=== PATIENT | male | born 1965 | race Caucasian/White ===

== ENCOUNTER 2016-08-22 14:13 | Outpatient (CLI) | payer BC | END 2016-08-22 14:14 | disposition home or self-care (01) | DX: L30.9 Dermatitis, unspecified (principal); I10 Essential (primary) hypertension; E66.9 Obesity, unspecified; D35.2 Benign neoplasm of pituitary gland; L98.9 Disorder of the skin and subcutaneous tissue, unspecified; H54.62 Unqualified visual loss, left eye, normal vision right eye ==

== ENCOUNTER 2016-08-23 08:00 | Outpatient (CLI) | payer BC | END 2016-08-23 23:59 | disposition home or self-care (01) | DX: L30.9 Dermatitis, unspecified (principal); D35.2 Benign neoplasm of pituitary gland; I10 Essential (primary) hypertension; E66.9 Obesity, unspecified ==

== ENCOUNTER 2018-05-01 09:19 | Emergency (ER) | payer BC ==
[2018-05-01] MEDS ORDERED: LIDOCAINE-MPF 2% 10 ML in SODIUM CHLORIDE 0.9% 50 ML IV STA (09:51)
[2018-05-01] MEDS ORDERED: SODIUM CHLORIDE 0.9% 1,000 ML IV ONE (09:51)
[2018-05-01] MEDS ORDERED: KETOROLAC 30 MG/ML VIAL IVP STA (09:52)
--- NOTE | 2018-05-01 09:55 | ED Physician Documentation ---
PD HPI BACK PAIN - Stated complaint Stated Complaint: BACK PX - Chief complaint Chief Complaint: Back Pain - History obtained from History obtained from: Patient, Family (spouse) - History of Present Illness Timing - onset: How many days ago (3) Timing - details: Still present Pain level max: 10 Pain level now: 7 Location: Mid, Right Quality: Pain Associated symptoms: No: Fever, Weakness, Numbness, Incontinent of urine Similar symptoms before: Diagnosis (Prior history of kidney stones.) - Treatment prior to arrival Treatment prior to arrival: Ibuprophen and Flexeril. - Additional information Additional information: The patient is a 53-year-old male who presents with right mid back pain that first started about 3 days ago, and became much worse at 3 AM today. He was "writhing" in pain. He took 1 tablet of his 's Flexeril, and has been using ibuprofen, and his pain is currently rated at 7 out of 10 in severity, compared to greater than 10 out of 10 at 3 AM. He denies any traumatic injury. He denies fever, nausea or vomiting, urinary symptoms, numbness or weakness. He has a past history of kidney stones. He also has a past history of lumbar degenerative disease. Review of Systems Constitutional: denies: Fever Nose: denies: Congestion Throat: denies: Sore throat Cardiac: denies: Chest pain / pressure Respiratory: denies: Dyspnea, Cough GI: denies: Abdominal Pain, Nausea, Vomiting : denies: Dysuria, Incontinent Skin: denies: Lesions Musculoskeletal: reports: Back pain. denies: Extremity pain Neurologic: denies: Focal weakness, Numbness, Headache PD PAST MEDICAL HISTORY - Past Medical History Past Medical History: Yes Cardiovascular: Hypertension Endocrine/Autoimmune: Type 2 diabetes : Kidney stones Derm: Psoriasis - Past Surgical History Past Surgical History: Yes - Present Medications Home Medications: Ambulatory Orders Medication Instructions Recorded Confirmed Atorvastatin [Lipitor] 05/01/18 Cyclobenzaprine [Flexeril] 10 mg PO TID PRN #20 tablet 05/01/18 Lisinopril 05/01/18 Metformin HCl 05/01/18 05/01/18 Oxycodone HCl/Acetaminophen 1 - 2 each PO Q6H PRN #14 tablet 05/01/18 [Percocet 5-325 mg Tablet] - Allergies Allergies/Adverse Reactions: Allergies Allergy/AdvReac Type Severity Reaction Status Date / Time acetaminophen [From Vicodin] AdvReac Nausea Verified 05/01/18 09:26 hydrocodone bitartrate * AdvReac Nausea Verified 05/01/18 09:26 [From Vicodin] Penicillins AdvReac Nausea Verified 05/01/18 09:26 - Social History Does the pt smoke?: No Smoking Status: Former smoker Does the pt drink ETOH?: Yes Does the pt have substance abuse?: No - Immunizations Immunizations are current?: Yes - POLST Patient has POLST: No PD ED PE NORMAL - Vitals Vital signs reviewed: Yes (Initially hypertensive.) - General General: Alert and oriented X 3, Other (Grossly overweight.) - HEENT HEENT: Atraumatic, Pharynx benign - Neck Neck: No adenopathy, No JVD - Cardiac Cardiac: RRR - Respiratory Respiratory: No respiratory distress, Clear bilaterally - Abdomen Abdomen: Soft, Non tender - Back Back: No spinal TTP, Other (Right CVA tenderness to percussion.) - Derm Derm: No rash - Extremities Extremities: No edema, No calf tenderness / cord - Neuro Neuro: Alert and oriented X 3, No motor deficit, Normal speech Results - Vitals Vitals: Oxygen O2 Source Room air - Labs Labs: Laboratory Tests 05/01/18 10:10 Urine Color YELLOW Urine Clarity CLEAR Urine pH 5.5 Ur Specific [place] 1.025 Urine Protein NEGATIVE Urine Glucose (UA) NEGATIVE Urine Ketones NEGATIVE Urine Occult Blood NEGATIVE Urine Nitrite NEGATIVE Urine Bilirubin NEGATIVE Urine Urobilinogen 0.2 (NORMAL) Ur Leukocyte Esterase NEGATIVE Ur Microscopic Review NOT INDICATED Urine Culture Comments NOT INDICATED - Rads (name of study) CT abd/pelvis w/o Radiology: Prelim report reviewed, EMP read contemporaneously, See rad report (No urinary tract stones or obstruction. Mild nonspecific fat stranding in the left lower quadrant as well as along the celiac root by the pancreatic body, both of questionable clinical significance.) PD MEDICAL DECISION MAKING - ED course Complexity details: reviewed results, re-evaluated patient, considered differential, d/w patient, d/w family ED course: The patient's presentation is most consistent with musculoskeletal back pain. Renal colic was considered, but CT scan of the abdomen and pelvis reveals no evidence of ureteral stone or hydronephrosis. His urinalysis is negative for hematuria. It is possible that a stone may have passed prior to obtaining the CT scan. His presentation does not suggest pyelonephritis, nor is there evidence to suggest abdominal aortic aneurysm. Treatment in the emergency department included administration of ketorolac 30 mg IV, lidocaine IV as per renal stone protocol, and normal saline 300 mL IV. He is being discharged with prescriptions for Flexeril and for Percocet, 14 tablets. I discussed with him and his the diagnosis, results of his workup, outpatient follow-up, as well as potentially worrisome signs or symptoms that should prompt reevaluation in the emergency department. Departure - Departure Disposition: Home, Self Care Clinical Impression: Back pain Condition: Stable Instructions: ED Neck Back Pain General Follow-Up: Dae Carrasco MD [Provider Admit Priv/Credential] - Prescriptions: Cyclobenzaprine [Flexeril] 10 mg PO TID PRN #20 tablet PRN Reason: Spasms Oxycodone HCl/Acetaminophen [Percocet 5-325 mg Tablet] 1 - 2 each PO Q6H PRN #14 tablet PRN Reason: pain Comments: Apply ice pack to your lower back intermittently for the next 3 or 4 days. Continue to use ibuprofen, up to 800 mg 3 times daily for its anti-inflammatory effect. You can use Flexeril as prescribed if needed for muscle spasms. You can use Percocet as prescribed if needed for pain. Follow-up with your primary physician within 1-2 weeks. Call to schedule appointment. Return to the emergency department if you develop increasing back pain, urinary incontinence, numbness or weakness, or otherwise worsening symptoms. Forms: Activity restrictions Discharge Date/Time: 05/01/18 11:12
[2018-05-01 10:34] LABS: BILIRUBIN,URINE NEGATIVE (NEGATIVE); GLUCOSE, URINE (UA) NEGATIVE (NEGATIVE); KETONES,URINE (UA) NEGATIVE (NEGATIVE); LEUKOCYTE ESTERASE, URINE NEGATIVE (NEGATIVE); NITRITE,URINE NEGATIVE (NEGATIVE); OCCULT BLOOD,URINE NEGATIVE (NEGATIVE); PH,URINE 5.5 PH (5.0-7.5); PROTEIN,URINE NEGATIVE (NEGATIVE); UROBILINOGEN,URINE 0.2 (NORMAL) E.U./dL (NORMAL)
[2018-05-01 10:37] LABS: CLARITY,URINE CLEAR (CLEAR)
--- NOTE | 2018-05-01 10:42 | CT Report ---
Reason: Right flank pain. Procedure Date: 05/01/2018 Accession Number: [id number] / [id number] Procedure: CT - Abdomen/Pelvis W/O CPT Code: FULL RESULT: EXAM: CT ABDOMEN AND PELVIS (CT KUB) EXAM DATE: 05/01/2018 10:28 AM. CLINICAL HISTORY: Right flank pain. COMPARISONS: None. TECHNIQUE: Routine axial helical CT imaging was performed through the abdomen and pelvis without IV contrast. Reconstructions: Coronal and sagittal. In accordance with CT protocol optimization, one or more of the following dose reduction techniques were utilized for this exam: automated exposure control, adjustment of mA and/or KV based on patient size, or use of iterative reconstructive technique. FINDINGS: Lung Bases: Unremarkable. Right Kidney/Ureter: No stones, hydronephrosis, or hydroureter. No perinephric fat stranding. Left Kidney/Ureter: No stones, hydronephrosis, or hydroureter. No perinephric fat stranding. Other Solid Organs: Noncontrast images of the solid organs are grossly unremarkable aside from a right lobe of the liver cyst. Gallbladder/Bile Ducts: Unremarkable. Peritoneal Cavity: There is mild nonspecific fat stranding around the celiac root adjacent to the pancreas as well as focally at the mid sigmoid colon in the left lower quadrant. No free fluid, free air or rogerio adenopathy. Bowel is grossly unremarkable. What is felt to represent an appendiceal stump is normal. Pelvic Organs: No bladder stones or wall thickening. Noncontrast images of the visualized pelvic organs are unremarkable. Vasculature: Mild atherosclerosis. Other: Fat-containing umbilical hernia. IMPRESSION: No urinary tract stones or obstruction. Mild nonspecific fat stranding in the left lower quadrant as well as along the celiac root by the pancreatic body are both of questionable clinical significance. [facility]
[2018-05-01 11:05] VITALS: BP 143/81
== END 2018-05-01 11:12 | disposition home or self-care (01) ==
LOC: ED 09:19
DX: M54.9 Dorsalgia, unspecified (principal); I10 Essential (primary) hypertension; E11.9 Type 2 diabetes mellitus without complications; Z79.84 Long term (current) use of oral hypoglycemic drugs; Z87.891 Personal history of nicotine dependence; Z87.442 Personal history of urinary calculi
CPT/HCPCS: 74176; 81003; 96361; 96374; 99283; J7040; 81001; 87086

== ENCOUNTER 2020-03-11 09:22 | Day surgery (SDC) | payer OTHER ==
[2020-03-11] MEDS ORDERED: LACTATED RINGERS 1,000 ML IV ONE ×2 (10:01→11:22)
[2020-03-11] MEDS ORDERED: MIDAZOLAM 2 MG/2 ML VIAL IVP ONE (10:55)
[2020-03-11] MEDS ORDERED: fentaNYL 250 MCG/5 ML VIAL IVP ONE (10:55)
[2020-03-11 11:34] VITALS: BP 119/85
== END 2020-03-11 09:23 | disposition home or self-care (01) ==
LOC: SDS 09:22
PROVIDERS: ATTEND Surgery
DX: K57.30 Diverticulosis of large intestine without perforation or abscess without bleeding (principal); J45.909 Unspecified asthma, uncomplicated; E66.01 Morbid (severe) obesity due to excess calories; Z68.39 Body mass index [BMI] 39.0-39.9, adult; Z87.891 Personal history of nicotine dependence; R10.32 Left lower quadrant pain
CPT/HCPCS: 45378; J3010; J7120